=== PATIENT | female | born 1995 | race American Indian/Alaskan Native ===

== ENCOUNTER 2020-10-07 17:43 | Emergency (ER) | payer MEDICAID ==
[2020-10-07 17:52] VITALS: BP 132/76
[2020-10-07] MEDS ORDERED: IBUPROFEN 800 MG TAB ONE (18:35)
[2020-10-07] MEDS ORDERED: IBUPROFEN 800 MG TAB PO ONE (18:36)
--- NOTE | 2020-10-07 18:40 | Emergency Department Report ---
ED General Adult HPI - General Chief complaint: Extremity Injury, Lower Stated complaint: RT FOOT PINKY TOE INJURY Time Seen by Provider: 10/07/20 18:13 Source: patient Mode of arrival: Wheelchair Limitations: No Limitations - History of Present Illness Initial comments: 24-year-old -[place] female patient presents with complaints of right little toe and foot pain after stubbing her toe on a door today. She rates her pain as 8/10 in severity and denies any numbness/tingling or difficulty moving her foot. No bruising or swelling per patient. Severity scale (0 -10): 8 - Related Data Previous Rx's Medication Instructions Recorded Last Taken Type Ibuprofen [Motrin 800 MG tab] 800 mg PO Q8HR PRN #20 tablet 10/07/20 Unknown Rx Allergies Allergy/AdvReac Type Severity Reaction Status Date / Time No Known Allergies Allergy Unverified 10/07/20 17:46 ED Review of Systems ROS: Stated complaint: RT FOOT PINKY TOE INJURY Other details as noted in HPI Musculoskeletal: arthralgia Skin: denies: change in color Neurological: abnormal gait. denies: numbness, paresthesias ED Past Medical Hx - Past Medical History Previous Medical History?: No - Surgical History Past Surgical History?: No - Social History Smoking Status: Current Every Day Smoker Substance Use Type: Alcohol - Medications Home Medications: Home Medications Medication Instructions Recorded Confirmed Last Taken Type Ibuprofen [Motrin 800 MG tab] 800 mg PO Q8HR PRN #20 tablet 10/07/20 Unknown Rx ED Physical Exam - General Limitations: No Limitations General appearance: alert, in no apparent distress - Head Head exam: Present: atraumatic, normocephalic - Eye Eye exam: Present: normal appearance - Respiratory Respiratory exam: Absent: respiratory distress - Extremities Exam Extremities exam: Present: other (Tenderness to palpation noted of right little toe and fifth MT without obvious swelling or bruising; normal range of motion and perfusion noted) - Back Exam Back exam: Present: full ROM - Neurological Exam Neurological exam: Present: alert, oriented X3, normal gait - Psychiatric Psychiatric exam: Present: normal affect, normal mood - Skin Skin exam: Present: warm, dry, intact, normal color. Absent: rash ED Course Vital Signs 10/07/20 17:52 Temperature 98.6 F Pulse Rate 88 Respiratory 18 Rate Blood Pressure 132/76 [Right] O2 Sat by Pulse 100 Oximetry ED Medical Decision Making - Radiology Data Radiology results: report reviewed RIGHT FOOT 3 VIEWS INDICATION: little toe and 5th MT pain after stubbed toe. COMPARISON: No relevant prior imaging study available. FINDINGS: No acute fracture or dislocation. No foreign bodies. IMPRESSION: 1. No acute findings. - Medical Decision Making 24-year-old -[place] female patient presents with complaints of right little toe and foot pain after stubbing her toe on a door today. She rates her pain as 8/10 in severity and denies any numbness/tingling or difficulty moving her foot. No bruising or swelling per patient. X-rays negative for any acute bony abnormality. Patient provided with crutches and Jaya wrap and discussed sprain of foot and toe. Rice method recommended along with NSAIDs. Recommend follow-up with orthopedics as needed. Strict return precautions discussed in detail with patient verbalized understanding. Critical care attestation.: If time is entered above; I have spent that time in minutes in the direct care of this critically ill patient, excluding procedure time. ED Disposition Clinical Impression: Sprain of foot, left Qualifiers: Encounter type: initial encounter Qualified Code(s): S93.602A - Unspecified sprain of left foot, initial encounter Disposition: - TO HOME OR SELFCARE Is pt being admited?: No Condition: Stable Instructions: Foot Sprain Prescriptions: Ibuprofen [Motrin 800 MG tab] 800 mg PO Q8HR PRN #20 tablet PRN Reason: pain Referrals: [facility] [Provider Group] - 3-5 Days
--- NOTE | 2020-10-07 19:22 | XRay Report ---
RIGHT FOOT 3 VIEWS INDICATION: little toe and 5th MT pain after stubbed toe. COMPARISON: No relevant prior imaging study available. FINDINGS: No acute fracture or dislocation. No foreign bodies. IMPRESSION: 1. No acute findings. Signer Name: Omkar Correa MD Signed: 10/07/2020 7:17 PM Workstation Name: [id number]
== END 2020-10-07 21:15 | disposition home or self-care (01) ==
LOC: ED 17:43
DX: S93.602A Unspecified sprain of left foot, initial encounter (principal); F17.200 Nicotine dependence, unspecified, uncomplicated; Z79.899 Other long term (current) drug therapy; W22.8XXA Striking against or struck by other objects, initial encounter; Y93.89 Activity, other specified; Y92.89 Other specified places as the place of occurrence of the external cause; Y99.8 Other external cause status